=== PATIENT | female | born 1970 | race Caucasian/White ===

== ENCOUNTER 2016-03-22 07:47 | Emergency (ER) | payer BC, OTHER ==
[~2016-03-22] VITALS: Ht 167.6 cm; Wt 98.1 kg
[~2016-03-22 07:47] MED LIST: ESCI1TAB10 PO; ESOM20CA PO; FEXO1TAB45 PO; HYDR-5688 PO; HYDR25TA5 PO; IBUP-103 PO; LEVO25TA5 PO; LPR25 PO; ONDA4TAB7 SL; POTA-327 PO; zquil PO
[2016-03-22 07:56] VITALS: TEMP 37.1; Ht 167.6 cm; Wt 98.1 kg
[2016-03-22] MEDS ORDERED: PANTOprazole SOD 40 MG TAB PO STA (08:02)
[2016-03-22 08:08] VITALS: O2SAT 97
[2016-03-22 08:13] LABS: BASO % 0.5 %; BASO ABS # 0.04 K/uL (0-0.2); COMPLETE YES; EOS % 1.4 %; HEMATOCRIT 39.1 % (37-47); IG% 0.5 %; LYMPH % 20.8 %; LYMPH ABS # 1.85 K/uL (1.2-3.4); MEAN CELL VOLUME 91.4 fL (80-100); MEAN CORPUSCULAR HEMOGLOBIN 32.5 pg (25-34); MEAN CORPUSCULAR HGB CONC 35.5 g/dl (32-36); MEAN PLATELET VOLUME 9.5 fL (7.4-10.4); MONO % 7.9 %; NEUT % 68.9 %; PLATELET COUNT 258 K/uL (130-400); RED BLOOD COUNT 4.28 M/uL (4.2-5.4); WHITE BLOOD COUNT 8.88 K/uL (4.8-10.8)
[2016-03-22] MEDS ORDERED: ONDANSETRON INJ 2 MG/ML 2 ML VIAL IV PRN (08:15)
--- NOTE | 2016-03-22 08:16 | EMERGENCY ROOM VISIT NOTE ---
History Report prepared by Ronn: Abril Romo Under the Supervision of: Dr. Tello Mark M.D. First contact with patient: 07:58 Chief Complaint: CARDIAC ASSESSMENT Stated Complaint: CHEST PAIN Nursing Triage Summary: Pt presents to room A11b via ALS with complaints of nausea, shortness of breath and left sided chest pain. pt reports left sided chest pain started this am at approx 0430 along with shortness of breath. Pt reports she went to work and shortness of breath increased. pt reports chest pain has decreased and now she is nauseated. pt is a current smoker. 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 The patient states that her pain in her chest radiates into both shoulder and into her arms. The patient states the pain was initially a 12/10 in severity but it is currently only a 2/10. The nursing staff state that the patient went into work today and then was experiencing worsening SOB which caused her to be evaluated at the ED. The patient states that she is now experiencing nausea. She denies any abdominal pain or burning with urination. The patient states that she has baseline kidney pain that she has been seen by her PCP for the pain that she has experienced for the last 3 years. The patient states that it currently feels like indigestion. She states that she was recently suffering from a sinus infection and finished her Levaquin prescription yesterday. She states that also forgot to take her Prilosec the last 2 days. The patient states that a few days ago she also forgot to take her antidepressant medication but has since been taking it normally but states since she missed the dose she has "not felt right." The patient states that she has hypertension but denies any history of diabetes or heart problems. 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 Review of Systems All systems have been listed, reviewed, and are negative other than those previously mentioned. Please see Additional Medical History Sheet. Past Medical & Surgical Medical Problems: (1) Anxiety State Nos (2) Depressive Disorder Nec (3) Esophageal Reflux (4) Hypertension Nos (5) Hypothyroidism Nos (6) Tobacco Use Disorder Family History Hypertension Social History Smoking Status: Current Every Day Smoker Alcohol Use: none Marital Status: Occupation Status: employed Current/Historical Medications Scheduled Levothyroxine Sodium (Levothyroxine Sodium), 25 MCG PO QAM Metoprolol Tartrate (Lopressor), 25 MG PO QAM Omeprazole (Prilosec), 40 MG PO QAM Simvastatin (Zocor), 20 MG PO QPM Venlafaxine Hcl (Effexor), 200 MG PO QAM Zolpidem Tartrate (Ambien), 5 MG PO HS Scheduled PRN Fexofenadine Hcl (Dianelys), 60 MG PO DAILY PRN Ibuprofen Tab (Advil), 400-600 MG PO Q4 PRN Allergies Coded Allergies: Acetaminophen (Verified Allergy, Unknown, ANAPHYLAXIS, 03/22/16) Amoxicillin (Unverified Allergy, Unknown, YEAST INFECTIONS , 03/22/16) Clavulanic Acid (Unverified Allergy, Unknown, YEAST INFECTIONS , 03/22/16) Oxycodone (Verified Allergy, Unknown, ANAPHYLAXIS, 03/22/16) Physical Exam Vital Signs Date Time Temp Pulse Resp B/P Pulse Ox O2 Delivery O2 Flow Rate FiO2 03/22/16 10:24 97 18 133/91 96 03/22/16 09:39 88 18 138/93 95 Room Air 03/22/16 08:13 89 18 133/91 96 Room Air 03/22/16 08:08 97 Room Air 03/22/16 07:56 37.1 91 20 146/100 97 Room Air 03/22/16 07:55 94 Physical Exam GENERAL: Patient awake, alert, oriented x 3. Patient follows commands. Patient does not appear toxic. Patient is adequately hydrated and well- nourished. Patient appears to be in minimal distress. SKIN: No erythema, pallor, cyanosis or rash HEENT: Normal head, pupils equal, reactive to light and accommodation. Neck: Without adenopathy, no neck vein distention. LUNGS: Clear to auscultation. No wheezes, no rales, no rhonchi. HEART: No murmurs. No gallops. No rubs ABDOMEN: No masses, no rebound, no hepatomegaly or splenomegaly. Obese. EXTREMITIES: No signs of trauma. No pedal or pretibial edema. No calf or thigh tenderness. NEUROLOGIC: Cranial nerves II-XII within normal limits. No gross motor sensory function deficits. Medical Decision & Procedures ER Provider Diagnostic Interpretation: X ray results are stated below per my interpretation and the radiologist's interpretation. TWO VIEW CHEST CLINICAL HISTORY: Atypical chest pain. FINDINGS: PA and lateral chest radiographs are compared to study dated 06/17/2013 and correlated with chest CT dated 06/06/2012. The cardiomediastinal silhouette is unremarkable. The lungs and pleural spaces are clear. There is no pneumothorax. The bony thorax appears intact. Cholecystitis clips are noted in the right upper quadrant. IMPRESSION: No active disease in the chest. Electronically signed by: Rory Norwood M.D. 03/22/2016 8:33 AM Dictated Date/Time: 03/22/2016 8:32 AM Laboratory Results 03/22/16 08:00 Red Blood Count 4.28, Mean Corpuscular Volume 91.4, Mean Corpuscular Hemoglobin 32.5, Mean Corpuscular Hemoglobin Concent 35.5, Mean Platelet Volume 9.5, Neutrophils (%) (Auto) 68.9, Lymphocytes (%) (Auto) 20.8, Monocytes (%) (Auto) 7.9, Eosinophils (%) (Auto) 1.4, Basophils (%) (Auto) 0.5, Neutrophils # (Auto) 6.13, Lymphocytes # (Auto) 1.85, Monocytes # (Auto) 0.70, Eosinophils # (Auto) 0.12, Basophils # (Auto) 0.04 03/22/16 08:00 Test 03/22/16 08:00 White Blood Count 8.88 K/uL (4.8-10.8) Red Blood Count 4.28 M/uL (4.2-5.4) Hemoglobin 13.9 g/dL (12.0-16.0) Hematocrit 39.1 % (37-47) Mean Corpuscular Volume 91.4 fL (80-100) Mean Corpuscular Hemoglobin 32.5 pg (25-34) Mean Corpuscular Hemoglobin Concent 35.5 g/dl (32-36) Platelet Count 258 K/uL (130-400) Mean Platelet Volume 9.5 fL (7.4-10.4) Neutrophils (%) (Auto) 68.9 % Lymphocytes (%) (Auto) 20.8 % Monocytes (%) (Auto) 7.9 % Eosinophils (%) (Auto) 1.4 % Basophils (%) (Auto) 0.5 % Neutrophils # (Auto) 6.13 K/uL (1.4-6.5) Lymphocytes # (Auto) 1.85 K/uL (1.2-3.4) Monocytes # (Auto) 0.70 K/uL (0.11-0.59) Eosinophils # (Auto) 0.12 K/uL (0-0.5) Basophils # (Auto) 0.04 K/uL (0-0.2) RDW Standard Deviation 41.1 fL (36.4-46.3) RDW Coefficient of Variation 12.3 % (11.5-14.5) Immature Granulocyte % (Auto) 0.5 % Immature Granulocyte # (Auto) 0.04 K/uL (0.00-0.02) Anion Gap 7.0 mmol/L (3-11) Est Creatinine Clear Calc Drug Dose 111.8 ml/min Estimated GFR () 111.6 Estimated GFR (Non- 96.3 BUN/Creatinine Ratio 18.5 (10-20) Calcium Level 8.3 mg/dl (8.5-10.1) Troponin I < 0.015 ng/ml (0-0.045) Laboratory results as stated above per my review. Medications Administered Medications (Trade) Dose Ordered Sig/Williams Route Start Time Stop Time Status Last Admin Dose Admin Ondansetron HCl (Zofran Inj) 4 mg Q1HWA PRN IV 03/22/16 08:15 03/22/16 10:39 DC 03/22/16 08:12 4 MG Pantoprazole Sodium (Protonix Tab) 40 mg NOW STAT PO 03/22/16 08:02 03/22/16 08:06 DC 03/22/16 08:12 40 MG Acetaminophen (Tylenol Tab) 1,000 mg NOW STAT PO 03/22/16 09:57 03/22/16 09:59 DC 03/22/16 10:14 1,000 MG ECG Indication: chest pain Rate (beats per minute): 91 Rhythm: normal sinus Findings: no acute ischemic change, no ectopy ED Course 0757: Past medical records reviewed. The patient was evaluated in room A11B. A complete history and physical examination was performed. 0802: Ordered Protonix Tab 40 mg PO. 0815: Ordered Zofran Inj 4 mg IV. 0955: Upon reevaluation, the patient appeared to have resolution of her chest pain. she does state that she now has a slight headache. I discussed today's findings with her. She verbalized agreement of the treatment plan. The patient was discharged home. 0957: Ordered Tylenol Tab 1,000 mg PO. Medical Decision Nurses notes reviewed. Medical history sheet reviewed. Differential diagnosis includes but is not limited to: Etiologies such as cardiac ischemia, aortic dissection, pulmonary embolism, pneumonia, pneumothorax, musculoskeletal, infections, pericarditis, myocarditis , esophageal rupture, gastrointestinal, as well as others were entertained. The patient ran out of her omeprazole and has not had it for a few days. Her chest pain is most consistent with GERD. 2 sets of troponin are negative. Her EKG shows no acute findings. Imaging of the blood work were also evaluated. Please see above. The patient also complained of a headache and was given Tylenol. I believe the patient can safely return home. She will be placed off work today. Impression Primary Impression: GERD (gastroesophageal reflux disease) Additional Impression: Tension headache Scribe Attestation The scribe's documentation has been prepared under my direction and personally reviewed by me in its entirety. I confirm that the note above accurately reflects all work, treatment, procedures, and medical decision making performed by me. Departure Information Dispostion Home / Self-Care Referrals Angie Loza PA-C (PCP) Forms IMPORTANT VISIT INFORMATION Patient Instructions My [facility] Additional Instructions 650 mg of Tylenol every 4 hours as needed for headache. Make sure you take all of your medications including omeprazole. Follow-up with your family physician within the next 10 days. Return here sooner if your pain is getting worse. Problem Qualifiers
[2016-03-22] MEDS ORDERED: VENL100T2 PO (08:23)
[2016-03-22] MEDS ORDERED: ZOLP5TAB PO (08:23)
[2016-03-22] MEDS ORDERED: OMEP40CA PO (08:23)
[2016-03-22] MEDS ORDERED: SIMV20TA2 PO (08:23)
--- NOTE | 2016-03-22 08:34 | DIAGNOSTIC IMAGING REPORT ---
TWO VIEW CHEST CLINICAL HISTORY: Atypical chest pain. FINDINGS: PA and lateral chest radiographs are compared to study dated 06/17/2013 and correlated with chest CT dated 06/06/2012. The cardiomediastinal silhouette is unremarkable. The lungs and pleural spaces are clear. There is no pneumothorax. The bony thorax appears intact. Cholecystitis clips are noted in the right upper quadrant. IMPRESSION: No active disease in the chest. Electronically signed by: Rory Norwood M.D. 03/22/2016 8:33 AM Dictated Date/Time: 03/22/2016 8:32 AM
[2016-03-22 08:45] LABS: BLOOD UREA NITROGEN 14 mg/dl (7-18); BUN/CREATININE RATIO 18.5 (10-20); CALCIUM 8.3 mg/dl (8.5-10.1); CARBON DIOXIDE 25 mmol/L (21-32); CHLORIDE 108 mmol/L (98-107); CREATININE 0.75 mg/dl (0.60-1.20); GLUCOSE 97 mg/dl (70-99); POTASSIUM 3.9 mmol/L (3.5-5.1); SODIUM 140 mmol/L (136-145)
[2016-03-22] MEDS ORDERED: ACETAMINOPHEN 500 MG TAB PO STA (09:57)
[2016-03-22 10:24] VITALS: BP 133/91; PULSE 97; O2SAT 96
== END 2016-03-22 10:25 | disposition home or self-care (01) ==
LOC: EDBD 07:47 → C.EDA 07:48
DX: K21.9 Gastro-esophageal reflux disease without esophagitis (principal); R51 Headache; F17.200 Nicotine dependence, unspecified, uncomplicated; E03.9 Hypothyroidism, unspecified; I10 Essential (primary) hypertension; Z82.49 Family history of ischemic heart disease and other diseases of the circulatory system

== ENCOUNTER 2016-06-30 10:26 | Emergency (ER) | payer OTHER ==
[~2016-06-30] VITALS: Ht 167.6 cm; Wt 103.1 kg
[~2016-06-30 10:26] MED LIST changes: -ESCI1TAB10 PO; -ESOM20CA PO; -HYDR-5688 PO; -HYDR25TA5 PO; +OMEP40CA PO; -ONDA4TAB7 SL; -POTA-327 PO; +SIMV20TA2 PO; +VENL100T2 PO; +ZOLP5TAB PO; -zquil PO
[2016-06-30 10:41] VITALS: Ht 167.6 cm; Wt 103.1 kg
[2016-06-30] MEDS ORDERED: NXM/40 PO (11:06)
[2016-06-30] MEDS ORDERED: EFFSR75 PO (11:08)
[2016-06-30] MEDS ORDERED: ZOLP10TA PO (11:09)
[2016-06-30] MEDS ORDERED: LORA-741 PO (11:10)
[2016-06-30] MEDS ORDERED: ONDANSETRON INJ 2 MG/ML 2 ML VIAL IV STA (11:33)
[2016-06-30] MEDS ORDERED: SODIUM CHLORIDE 0.9% 1000ML 1,000 ML IV STA (11:33)
[2016-06-30 11:59] LABS: URINE APPEARANCE CLEAR (CLEAR); URINE BILIRUBIN NEG (NEG); URINE COLOR YELLOW; URINE NITRITE NEG (NEG); URINE SPECIFIC GRAVITY 1.012 (1.000-1.030); UROBILINOGEN NEG (NEG); ZZUR CULT IF INDIC CLEAN CATCH NO
[2016-06-30 12:00] LABS: PREG INTERNAL NEGATIVE QC NEG CLEAR BACKGROUND; PREG INTERNAL POSITIVE QC POS CONTROL LINE
[2016-06-30 12:00] LABS: BASO % 0.7 %; BASO ABS # 0.05 K/uL (0-0.2); COMPLETE YES; EOS % 3.9 %; HEMATOCRIT 42.3 % (37-47); IG% 0.5 %; LYMPH ABS # 2.18 K/uL (1.2-3.4); MEAN CELL VOLUME 94.8 fL (80-100); MEAN CORPUSCULAR HGB CONC 34.8 g/dl (32-36); MEAN PLATELET VOLUME 9.9 fL (7.4-10.4); MONO % 9.3 %; NEUT % 56.6 %; PLATELET COUNT 270 K/uL (130-400); RED BLOOD COUNT 4.46 M/uL (4.2-5.4); WHITE BLOOD COUNT 7.51 K/uL (4.8-10.8)
[2016-06-30 12:01] LABS: MANUAL MICROSCOPIC REQUIRED? NO; REVIEW REQ? NO
[2016-06-30 12:44] LABS: ALB/GLOB RATIO 1.1 (0.9-2); BUN/CREATININE RATIO 13.9 (10-20); CREATININE 0.67 mg/dl (0.60-1.20); POTASSIUM 4.3 mmol/L (3.5-5.1)
--- NOTE | 2016-06-30 12:44 | DIAGNOSTIC IMAGING REPORT ---
LUMBAR SPINE 5 VIEWS CLINICAL HISTORY: Low back pain. Nausea and constipation. FINDINGS: 5 views of the lumbar spine are obtained. No prior studies are available for comparison at the time of dictation. The skeletal structures are osteopenic. There is no radiographic evidence of fracture or malalignment. Vertebral body height and alignment are maintained. The transverse and spinous processes are intact. There is no evidence of spondylolysis. There is moderate degenerative disc space narrowing seen at L1-L2 and L4-L5 with associated endplate sclerosis. The remaining intervertebral disc spaces appear well-maintained. Small anterior osteophytes are seen throughout. Mild facet arthropathy is noted in the lower lumbar region. The visualized bony pelvis appears intact. A left hip arthroplasty is partially imaged. There is a nonobstructed abdominal bowel gas pattern. There is moderate to severe constipation. Cholecystectomy clips are seen in the right upper quadrant. Surgical clips and suture material are identified in the pelvis. IMPRESSION: 1. No acute bony abnormality is identified involving the lumbosacral spine. 2. Osteopenia and mild spondylotic change as above. 3. Moderate to severe constipation. Electronically signed by: Rory Norwood M.D. 06/30/2016 12:42 PM Dictated Date/Time: 06/30/2016 12:40 PM
--- NOTE | 2016-06-30 12:45 | DIAGNOSTIC IMAGING REPORT ---
CHEST AND ABDOMEN 2 VIEWS HISTORY: low back pain, nausea, constipation COMPARISON: Chest 03/22/2016. FINDINGS: The lungs are clear. The cardiomediastinal silhouette is within normal limits. There is no pneumoperitoneum or pneumatosis. The bowel gas pattern is unremarkable. Cholecystectomy. Left hip arthroplasty. Suture material and surgical clips within the pelvis. Moderate well-formed stool seen within the colon. No renal or ureteral stones identified. IMPRESSION: No acute cardiopulmonary process. No evidence for bowel obstruction. Electronically signed by: Nakul Lloyd M.D. 06/30/2016 12:43 PM Dictated Date/Time: 06/30/2016 12:41 PM
--- NOTE | 2016-06-30 13:05 | EMERGENCY ROOM VISIT NOTE ---
History First contact with patient: 11:07 Chief Complaint: NAUSEA Stated Complaint: NAUSEA,KIDNEY PAIN,CONSTIPATION Nursing Triage Summary: Pt reports starting Wednesday she has been having "kidney pain" on both sides of her back rated 8/10. Pt also reports nausea, and difficulty moving her bowels. Pt was seen at PCP yesterday, urine was negative and she had an xray to check for a blockage. History of Present Illness The patient is a 45 year old female who presents to the Emergency Room with complaints of nausea and "kidney pain." The patient states that she has had pain in her back for the past 2 days. The patient states that she has had difficulty with bowel movements, but still has been moving her bowels. She states that she has been nauseous, but has not had vomiting and states she has been eating okay. She states the pain is worse on the right side. She has had some bradycardic abdominal pain. She was seen by her primary care provider a few days ago and was told that she did not have a blockage. She denies any urinary symptoms, chest pain, shortness of breath or fevers. Review of Systems A complete 10-point Review of Systems was discussed with the patient, with pertinent positives and negatives listed in the History of Present Illness. All remaining Review of Systems questions can be considered negative unless otherwise specified. Past Medical/Surgical History Medical Problems: (1) Anxiety State Nos (2) Depressive Disorder Nec (3) Esophageal Reflux (4) Hypertension Nos (5) Hypothyroidism Nos (6) Tobacco Use Disorder Family History Hypertension Social History Smoking Status: Current Every Day Smoker Alcohol Use: none Marital Status: Occupation Status: employed Current/Historical Medications Scheduled Esomeprazole Magnesium (Nexium), 40 MG PO DAILY Levothyroxine Sodium (Levothyroxine Sodium), 25 MCG PO QAM Metoprolol Tartrate (Lopressor), 25 MG PO QAM Simvastatin (Zocor), 20 MG PO QPM Venlafaxine Hcl (Effexor Extended Rel), 75 MG PO TID Zolpidem Tartrate (Ambien), 10 MG PO HS Scheduled PRN Fexofenadine Hcl (Dianelys), 60 MG PO DAILY PRN Ibuprofen Tab (Advil), 400-600 MG PO Q4 PRN Lorazepam (Ativan), 0.5 MG PO HS PRN for Anxiety Allergies Coded Allergies: Acetaminophen (Verified Allergy, Unknown, ANAPHYLAXIS, 1/15/17) Amoxicillin (Unverified Allergy, Unknown, YEAST INFECTIONS , 03/22/16) Clavulanic Acid (Unverified Allergy, Unknown, YEAST INFECTIONS , 03/22/16) Oxycodone (Verified Allergy, Unknown, ANAPHYLAXIS, 03/22/16) Physical Exam Vital Signs Date Time Temp Pulse Resp B/P Pulse Ox O2 Delivery O2 Flow Rate FiO2 06/30/16 13:29 37.0 69 18 172/95 97 06/30/16 10:41 37.0 82 20 157/101 97 Room Air Physical Exam VITALS: Vitals are noted on the nurse's note and reviewed by myself. Vital signs stable. GENERAL: This is a 45-year-old female, in no acute distress, nondiaphoretic, well-developed well-nourished. HEENT: Normocephalic. PERRLA. EOMI. Nares patent. Mucous membranes moist. Neck is supple without nuchal rigidity. HEART: Regular rate and rhythm without murmurs gallops or rubs. LUNGS: Clear to auscultation bilaterally without wheezes, rales or rhonchi. ABDOMEN: Positive bowel sounds x 4. Soft, nontender to palpation. MUSCULOSKELETAL: There is vague tenderness over the lumbar region. No tenderness over the spinous processes. NEURO: Patient was alert and oriented to person place and time. Medical Decision & Procedures ER Provider Diagnostic Interpretation: CHEST AND ABDOMEN 2 VIEWS FINDINGS: The lungs are clear. The cardiomediastinal silhouette is within normal limits. There is no pneumoperitoneum or pneumatosis. The bowel gas pattern is unremarkable. Cholecystectomy. Left hip arthroplasty. Suture material and surgical clips within the pelvis. Moderate well-formed stool seen within the colon. No renal or ureteral stones identified. IMPRESSION: No acute cardiopulmonary process. No evidence for bowel obstruction. LUMBAR SPINE 5 VIEWS FINDINGS: 5 views of the lumbar spine are obtained. No prior studies are available for comparison at the time of dictation. The skeletal structures are osteopenic. There is no radiographic evidence of fracture or malalignment. Vertebral body height and alignment are maintained. The transverse and spinous processes are intact. There is no evidence of spondylolysis. There is moderate degenerative disc space narrowing seen at L1-L2 and L4-L5 with associated endplate sclerosis. The remaining intervertebral disc spaces appear well-maintained. Small anterior osteophytes are seen throughout. Mild facet arthropathy is noted in the lower lumbar region. The visualized bony pelvis appears intact. A left hip arthroplasty is partially imaged. There is a nonobstructed abdominal bowel gas pattern. There is moderate to severe constipation. Cholecystectomy clips are seen in the right upper quadrant. Surgical clips and suture material are identified in the pelvis. IMPRESSION: 1. No acute bony abnormality is identified involving the lumbosacral spine. 2. Osteopenia and mild spondylotic change as above. 3. Moderate to severe constipation. Laboratory Results 06/30/16 11:49 Red Blood Count 4.46, Mean Corpuscular Volume 94.8, Mean Corpuscular Hemoglobin 33.0, Mean Corpuscular Hemoglobin Concent 34.8, Mean Platelet Volume 9.9, Neutrophils (%) (Auto) 56.6, Lymphocytes (%) (Auto) 29.0, Monocytes (%) (Auto) 9.3, Eosinophils (%) (Auto) 3.9, Basophils (%) (Auto) 0.7, Neutrophils # (Auto) 4.25, Lymphocytes # (Auto) 2.18, Monocytes # (Auto) 0.70, Eosinophils # (Auto) 0.29, Basophils # (Auto) 0.05 06/30/16 11:49 Test 06/30/16 10:55 06/30/16 11:49 Urine Color YELLOW Urine Appearance CLEAR (CLEAR) Urine pH 8.0 (4.5-7.5) Urine Specific [place] 1.012 (1.000-1.030) Urine Protein NEG (NEG) Urine Glucose (UA) NEG (NEG) Urine Ketones NEG (NEG) Urine Occult Blood NEG (NEG) Urine Nitrite NEG (NEG) Urine Bilirubin NEG (NEG) Urine Urobilinogen NEG (NEG) Urine Leukocyte Esterase NEG (NEG) Urine Test NEG (NEG) White Blood Count 7.51 K/uL (4.8-10.8) Red Blood Count 4.46 M/uL (4.2-5.4) Hemoglobin 14.7 g/dL (12.0-16.0) Hematocrit 42.3 % (37-47) Mean Corpuscular Volume 94.8 fL (80-100) Mean Corpuscular Hemoglobin 33.0 pg (25-34) Mean Corpuscular Hemoglobin Concent 34.8 g/dl (32-36) Platelet Count 270 K/uL (130-400) Mean Platelet Volume 9.9 fL (7.4-10.4) Neutrophils (%) (Auto) 56.6 % Lymphocytes (%) (Auto) 29.0 % Monocytes (%) (Auto) 9.3 % Eosinophils (%) (Auto) 3.9 % Basophils (%) (Auto) 0.7 % Neutrophils # (Auto) 4.25 K/uL (1.4-6.5) Lymphocytes # (Auto) 2.18 K/uL (1.2-3.4) Monocytes # (Auto) 0.70 K/uL (0.11-0.59) Eosinophils # (Auto) 0.29 K/uL (0-0.5) Basophils # (Auto) 0.05 K/uL (0-0.2) RDW Standard Deviation 41.3 fL (36.4-46.3) RDW Coefficient of Variation 12.0 % (11.5-14.5) Immature Granulocyte % (Auto) 0.5 % Immature Granulocyte # (Auto) 0.04 K/uL (0.00-0.02) Anion Gap 6.0 mmol/L (3-11) Est Creatinine Clear Calc Drug Dose 128.6 ml/min Estimated GFR () 123.0 Estimated GFR (Non- 106.2 BUN/Creatinine Ratio 13.9 (10-20) Calcium Level 9.0 mg/dl (8.5-10.1) Total Bilirubin 0.4 mg/dl (0.2-1) Aspartate Amino Transf (AST/SGOT) 16 U/L (15-37) Alanine Aminotransferase (ALT/SGPT) 28 U/L (12-78) Alkaline Phosphatase 66 U/L (45-117) Total Protein 7.2 gm/dl (6.4-8.2) Albumin 3.8 gm/dl (3.4-5.0) Globulin 3.4 gm/dl (2.5-4.0) Albumin/Globulin Ratio 1.1 (0.9-2) Lipase 86 U/L (73-393) Chemistry Specimen Hemolysis Medications Administered Medications (Trade) Dose Ordered Sig/Williams Route Start Time Stop Time Status Last Admin Dose Admin Sodium Chloride (Nss 1000ml) 1,000 ml @ 999 mls/hr Q1H1M STAT IV 06/30/16 11:33 06/30/16 12:33 DC 06/30/16 11:33 999 MLS/HR Ondansetron HCl (Zofran Inj) 4 mg NOW STAT IV 06/30/16 11:33 06/30/16 11:38 DC 06/30/16 11:33 4 MG ED Course The patient was evaluated as above. Labs were drawn and IV access was obtained. Patient was medicated with 1 L normal saline solution and 4 mg Zofran. Imaging studies were performed and read by radiology as above. Patient was reevaluated and was sleeping. Findings were discussed. Discharge instructions were reviewed with the patient. The patient verbalized understanding of my assessment and treatment plan and was discharged home in good condition. Medical Decision Differential diagnosis includes low back pain, bowel obstruction, constipation, kidney stone, among others. The patient is a 45-year-old female who presents today complaining of multiple complaints. Labs revealed no leukocytosis, anemia or concerning electrolyte abnormalities. Urinalysis was not suggestive of infection. X-rays were obtained of the abdomen and lumbar spine. These did show moderate constipation but no evidence of obstruction. The patient was instructed to use MiraLAX at home. Based on the patient's presentation and work up, I feel the patient is stable for outpatient treatment. The patient was educated to the emergency department for any worsening of their current condition or new/concerning symptoms. She will follow up with her primary care provider. Impression Primary Impression: Constipation Departure Information Dispostion Home / Self-Care Condition GOOD Referrals Cierra Quintanilla M.D. (PCP) Patient Instructions My [facility] Additional Instructions Take Miralax over the counter as directed on the package for relief of your constipation. Drink plenty of fluids. Follow up with your primary care provider within 48 hours. Return to the emergency department for worsening pain, vomiting, fevers, or any other new/concerning symptoms. Problem Qualifiers Primary Impression: Constipation Constipation type: unspecified constipation type Qualified Codes: K59.00 - Constipation, unspecified
[2016-06-30 13:29] VITALS: BP 172/95; PULSE 69; TEMP 37; O2SAT 97
== END 2016-06-30 13:30 | disposition home or self-care (01) ==
LOC: C.EDB 10:28 → C.EDC 13:30
DX: K59.00 Constipation, unspecified (principal); R11.0 Nausea; M54.9 Dorsalgia, unspecified; I10 Essential (primary) hypertension; E03.9 Hypothyroidism, unspecified; F17.210 Nicotine dependence, cigarettes, uncomplicated

== ENCOUNTER 2021-09-12 12:50 | Inpatient (IN) ==
[2021-09-12] MEDS ORDERED: SODIUM CHLORIDE 0.9% 1000ML 1,000 ML IV ONE (13:35)
[2021-09-12] MEDS ORDERED: ONDANSETRON INJ 2 MG/ML 2 ML VIAL IV STA (13:35)
[2021-09-12] MEDS ORDERED: MoRPHine SULFATE 10 MG/ML CARP/VIAL IV STA ×2 (13:35→16:11)
--- NOTE | 2021-09-12 13:35 | Emergency Department Note ---
Impression & Plan Recurrent vulvar cancer, Nausea, Abdominal pain ED Provider Note NAME: TYLER GOEL AGE: 50 SEX: F : 1970 ARRIVES VIA: Walk-In INFORMANT: Patient ED PROVIDER(S): Shivam Mancuso DO CHIEF COMPLAINT: shaking HPI: Patient is a 50-year-old female with recurrent vulvar cancer that presents to the ER for bleeding associated with shaking chills. First round of chemo was this past Wednesday. Past 24 hours she has been having shaking chills that she has been unable to control. She feels very cold. She has been having some intermittent bleeding from right vulva. She went to receive radiation today and they sent her over here to be evaluated. She started radiation on the fifth. Denies any headache or change in vision. No cough or runny nose. No belly pain, nausea, or vomiting. She admits to pain in her groin with some mild redness and drainage. Has persistent dysuria since the cancer was diagnosed. She notes that is very painful. ROS: See above HPI for pertinent positives & negatives. A total of 10 systems reviewed and were otherwise negative. PAST MEDICAL HISTORY:See Below PAST SURGICAL HISTORY:See Below FAMILY HISTORY:See Below SOCIAL HISTORY:See Below HOME MEDICATIONS:See Below ALLERGIES:See Below VITALS:See Below PHYSICAL EXAMINATION: GENERAL: Sitting up in bed, alert, appearing, shaking chills the upper extremities EYE EXAM: normal conjunctiva. OROPHARYNX: mucous membranes are moist LUNGS: Clear to auscultation. Normal chest wall mechanics HEART: no murmurs, S1 normal and S2 normal ABDOMEN: abdomen soft, non-tender, normo-active bowel sounds, no masses, no rebound or guarding. : Right vulva is engorged erythematous significantly tender with an ulcerating lesion mild erythema tracking up to the pubic symphysis. Performed with female RN at bedside. UPPER EXTREMITIES: upper extremities are grossly normal. LOWER EXTREMITIES: No pitting edema. NEURO EXAM: Normal sensorium, cranial nerves II-XII grossly intact, normal speech, no gross weakness of arms, no gross weakness of legs. MEDICAL DECISION MAKING: Patient is a 50-year-old female who presents to the ER for severe lower pelvic pain associated with dysuria area and shaking chills. He was established blood work was obtained. Labs show no significant leukocytosis or anemia. INR was unremarkable. BMP with LFTs bilirubin was unremarkable. Troponin was negative. Pro-Juan was normal. COVID was negative. Patient was given multiple doses of morphine as well as 2 g Rocephin due to the shaking chills/rigors that she was h aving upon presentation as broad-spectrum coverage. Patient was discussed with hospitalist for further evaluation. Pressures were 190s did improve with pain meds. Triage Nursing notes reviewed. Limited review of prior medical records performed Vital Signs: reviewed and remarkable for HTN Differential diagnosis: Differential diagnosis includes etiologies such as sepsis, UTI, pneumonia, metabolic, electrolyte abnormalities, cardiac sources, intracerebral event, toxicologic, neurological, as well as others were entertained. ER treatment provided: See below Diagnostics interpreted by me: ECG: Sinus rhythm rate 82 Normal axis No PVCs QTC 436 Cardiac Monitoring: An order was placed for continuous cardiac monitoring. The monitor shows a rate of 90 with sinus rhythm. Laboratory studies: As stated above and show below. Imaging studies: CT abdomen pelvis was unremarkable with the exception of the right vulvar mass and large lymph nodes [facility]: none Critical Care: None Past Med/Surg History Medical History (Updated 09/12/21 @ 16:45 by Shivam Mancuso DO) Chest pain Elevated lipids Gastroenteritis High cholesterol Hypertension (06/17/13) Hypothyroidism Tennis elbow Vulvar cancer Surgical History (Updated 08/20/21 @ 08:34 by Tonya Rouse RN) H/O vulvectomy History of hip replacement left History of partial hysterectomy Hx of cholecystectomy Family History (Updated 08/20/21 @ 08:37 by Tonya Rouse RN) Grandfather (Maternal) Cancer skin cancer Mother Hypertension Dyslipidemia Thyroid disease Father Dyslipidemia Social History (Updated 08/20/21 @ 08:40 by Tonya Rouse RN) Smoking Status: Current every day smoker Tobacco Type: Cigarettes Age Started Using Tobacco: 16; packs per day: 0.5; Cigarettes Per Day: 10; Hx Alcohol Use: No Hx Substance Use: No Preferred Language: Estonian Communication Ability: Effective Hearing Ability: Normal Paving Bed Maker Required: No Beliefs That Will Affect Care: None marital status: Current Living Situation: Alone current occupational status: employed 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 Safe at Home: Yes caffeine: Yes Assistive Devices: CPAP Allergies Allergies Allergy/AdvReac Type Severity Reaction Status Date / Time amoxicillin Allergy Unknown YEAST Verified 08/20/21 08:27 INFECTIONS clavulanic acid Allergy Unknown YEAST Verified 08/20/21 08:27 INFECTIONS oxycodone Allergy Unknown ANAPHYLAXIS Verified 08/20/21 08:27 Home Meds Home Medications Medication Instructions Recorded Confirmed FEXOFENADINE HCL (KELSY) 60 mg PO DAILY PRN #0 tab 06/06/12 08/20/21 METOPROLOL TARTRATE (LOPRESSOR) 25 mg PO QAM #0 tab 06/06/12 08/20/21 LEVOTHYROXINE SODIUM 25 mcg PO QAM #0 06/17/13 08/20/21 Simvastatin (Zocor) 20 mg PO QPM #0 tab 03/22/16 08/20/21 LORAZEPAM (ATIVAN) 0.5 mg PO HS PRN #0 tab 06/30/16 08/20/21 VENLAFAXINE HCL (EFFEXOR EXTENDED 75 mg PO TID #0 cap 06/30/16 08/20/21 REL) ZOLPIDEM TARTRATE (AMBIEN) 10 mg PO HS #0 tab 06/30/16 08/20/21 acetaminophen 500 mg tablet 1,000 mg PO TID PRN tab 08/20/21 08/20/21 (Tylenol Extra Strength) amitriptyline 25 mg tablet 25 mg PO DAILY 08/20/21 08/20/21 omeprazole 40 mg capsule,delayed 40 mg PO DAILY 08/20/21 08/20/21 release oxycodone-acetaminophen 5 mg-325 1 tab PO Q8H PRN 09/09/21 09/09/21 mg tablet (Percocet) sulfamethoxazole 800 1 tab PO BID 09/09/21 09/09/21 mg-trimethoprim 160 mg tablet (Bactrim DS) Previous Rx's Medication Instructions Recorded lidocaine 5 % topical ointment 1 applic TOPICAL QID PRN #60 g 08/28/21 Results & Data (ED) Vital Signs Vital Signs - 24 hr 09/12/21 12:51 09/12/21 13:54 09/12/21 15:00 Temperature 36.5 C Temperature Source Oral Pulse Rate 90 88 Pulse Rate [Apical] 87 78 Pulse Rhythm Regular Respiratory Rate 18 20 18 Respiratory Effort / Characteristics Non-Labored Respiratory Depth Normal Blood Pressure 143/93 H Blood Pressure [Right Arm] 180/103 H 172/101 H Blood Pressure Mean 109 Blood Pressure Mean [Right Arm] 128 124 Pulse Oximetry 96 94 96 Oxygen Delivery Method Room Air Room Air Room Air Sepsis Recent Fever Within 48 Hours No Sepsis New/Unexplained Change in Mental Status No Sepsis Action Taken by Nursing No Action Required 09/12/21 15:46 Temperature Temperature Source Pulse Rate Pulse Rate [Apical] 87 Pulse Rhythm Respiratory Rate 18 Respiratory Effort / Characteristics Respiratory Depth Blood Pressure Blood Pressure [Right Arm] 196/113 H Blood Pressure Mean Blood Pressure Mean [Right Arm] 140 Pulse Oximetry 97 Oxygen Delivery Method Room Air Sepsis Recent Fever Within 48 Hours Sepsis New/Unexplained Change in Mental Status Sepsis Action Taken by Nursing Laboratory Data Result diagrams: 09/12/21 13:40 09/12/21 13:40 Lab Results 09/12/21 09/12/21 09/12/21 Range/Units 13:40 13:40 13:40 WBC 8.10 (4.8-10.8) K/ul RBC 3.99 (3.93-5.22) M/uL Hgb 12.7 (12.0-16.0) g/dl Hct 38.0 (34.1-44.9) % MCV 95.2 (80.0-100.0) fL MCH 31.8 (25.0-34.0) pg MCHC 33.4 (32.0-36.0) g/dL RDW Std Deviation 43.8 (36.4-46.3) fL RDW Coeff of Roger 12.6 (11.5-14.5) % Plt Count 279 (130-400) K/uL MPV 9.6 (9.4-12.3) fL Immature Gran % (Auto) 0.4 % Neut % (Auto) 66.7 % Lymph % (Auto) 23.0 % [place] % (Auto) 9.9 % Eos % (Auto) 0.0 % Baso % (Auto) 0.0 % Neut # (Auto) 5.41 (1.4-6.5) K/uL Lymph # (Auto) 1.86 (1.2-3.4) K/uL [place] # (Auto) 0.80 (0.24-0.82) K/uL Eos # (Auto) 0.00 (0-0.50) K/uL Baso # (Auto) 0.00 (0-0.2) K/uL Immature Gran # (Auto) 0.03 H (0.00-0.02) K/uL PT 10.3 (9.0-12.0) Seconds INR 1.0 (0.9-1.1) APTT 23.9 (21.0-31.0) Seconds PTT Ratio 0.9 Sodium 134 L (136-145) mmol/L Potassium 3.9 (3.5-5.1) mmol/L Chloride 101 (98-107) mmol/L Carbon Dioxide 26 (21-32) mmol/L Anion Gap 7 (3-11) BUN 22 (6-23) mg/dl Creatinine 0.99 (0.6-1.2) mg/dl Est Cr Clr Drug Dosing Not Reportable Est GFR ( Amer) 77.0 ml/min Est GFR (Non-Af Amer) 66.4 ml/min BUN/Creatinine Ratio 22.2 H (10-20) Glucose 101 H (70-99(Fasting)) mg/dl Lactate (0.4-2.0) mmol/L Calcium 9.2 (8.5-10.1) mg/dl Magnesium 1.7 (1.7-2.4) mg/dl Total Bilirubin 0.5 (0.2-1.0) mg/dl AST 29 (13-39) U/L ALT 247 H (7-52) U/L Alkaline Phosphatase 88 (34-104) U/L Troponin I High Sens 3.2 (0-14) pg/ml Total Protein 6.8 (6.0-8.3) gm/dl Albumin 4.2 (3.4-5.0) gm/dl Globulin 2.6 (2.5-4.0) gm/dl Albumin/Globulin Ratio 1.6 (0.9-2) Procalcitonin (0-0.5) ng/ml SARS-CoV-2, RNA, NAAT (NEGATIVE) 09/12/21 09/12/21 09/12/21 Range/Units 13:40 13:40 13:40 WBC (4.8-10.8) K/ul RBC (3.93-5.22) M/uL Hgb (12.0-16.0) g/dl Hct (34.1-44.9) % MCV (80.0-100.0) fL MCH (25.0-34.0) pg MCHC (32.0-36.0) g/dL RDW Std Deviation (36.4-46.3) fL RDW Coeff of Roger (11.5-14.5) % Plt Count (130-400) K/uL MPV (9.4-12.3) fL Immature Gran % (Auto) % Neut % (Auto) % Lymph % (Auto) % [place] % (Auto) % Eos % (Auto) % Baso % (Auto) % Neut # (Auto) (1.4-6.5) K/uL Lymph # (Auto) (1.2-3.4) K/uL [place] # (Auto) (0.24-0.82) K/uL Eos # (Auto) (0-0.50) K/uL Baso # (Auto) (0-0.2) K/uL Immature Gran # (Auto) (0.00-0.02) K/uL PT (9.0-12.0) Seconds INR (0.9-1.1) APTT (21.0-31.0) Seconds PTT Ratio Sodium (136-145) mmol/L Potassium (3.5-5.1) mmol/L Chloride (98-107) mmol/L Carbon Dioxide (21-32) mmol/L Anion Gap (3-11) BUN (6-23) mg/dl Creatinine (0.6-1.2) mg/dl Est Cr Clr Drug Dosing Est GFR ( Amer) ml/min Est GFR (Non-Af Amer) ml/min BUN/Creatinine Ratio (10-20) Glucose (70-99(Fasting)) mg/dl Lactate 0.7 (0.4-2.0) mmol/L Calcium (8.5-10.1) mg/dl Magnesium (1.7-2.4) mg/dl Total Bilirubin (0.2-1.0) mg/dl AST (13-39) U/L ALT (7-52) U/L Alkaline Phosphatase (34-104) U/L Troponin I High Sens (0-14) pg/ml Total Protein (6.0-8.3) gm/dl Albumin (3.4-5.0) gm/dl Globulin (2.5-4.0) gm/dl Albumin/Globulin Ratio (0.9-2) Procalcitonin < 0.05 (0-0.5) ng/ml SARS-CoV-2, RNA, NAAT NEGATIVE (NEGATIVE) Administered Medications Discontinued Medications Sodium Chloride (Nss 1000ml) 1,000 mls @ 999 mls/hr IV .Q1H1M ONE Stop: 09/12/21 14:35 Last Admin: 09/12/21 14:44 Dose: 999 mls/hr Documented by: [id number] Ioversol (Optiray 320 100ml) 94 ml IV ONCE ONE Stop: 09/12/21 15:09 Last Admin: 09/12/21 15:12 Dose: 94 ml Documented by: [id number] Morphine Sulfate (Morphine Sulfate 10 Mg/Ml Carp/Vial) 6 mg IV NOW STA Stop: 09/12/21 13:36 Last Admin: 09/12/21 14:44 Dose: Not Given Documented by: [id number] Morphine Sulfate (Morphine Sulfate 4 Mg/Ml 1 Ml Carp\Vial) Confirm Administered Dose 4 mg .ROUTE .STK-MED ONE Stop: 09/12/21 14:41 Last Admin: 09/12/21 14:44 Dose: 4 mg Documented by: [id number] Morphine Sulfate (Morphine Sulfate 2 Mg/Ml Carp) Confirm Administered Dose 2 mg .ROUTE .STK-MED ONE Stop: 09/12/21 14:41 Last Admin: 09/12/21 14:44 Dose: 2 mg Documented by: [id number] Ondansetron HCl (Ondansetron Inj 2 Mg/Ml 2 Ml Vial) 4 mg IV NOW STA Stop: 09/12/21 13:36 Last Admin: 09/12/21 14:44 Dose: 4 mg Documented by: [id number] Imaging Data Radiologist's Impression: Abdomen/Pelvis CT 09/12/21 13:17 CT SCAN OF THE ABDOMEN AND PELVIS WITH IV CONTRAST CLINICAL HISTORY: Vulvar cancer. Generalized abdominal pain. Chills. COMPARISON STUDY: Abdominal radiographs dated 06/30/2016. TECHNIQUE: Following the IV administration of 94 cc of Optiray 320, CT scan of the abdomen and pelvis is performed from the lung bases to the proximal femora. Images are reviewed in the axial, sagittal, and coronal planes. IV contrast was administered without complication. A dose lowering technique was utilized adhering to the principles of ALARA. CT DOSE: 1304.62 mGycm FINDINGS: Lung bases: The tip of a central venous infusion port terminates at the cavoatrial junction. The heart is normal in size and without pericardial effusion. The lung bases are clear. Liver: The contrast-enhanced liver is normal in size, contour, and attenuation. There is no intrahepatic biliary ductal dilatation. The hepatic veins and portal veins are patent. Gallbladder: Surgically absent noting clips in the gallbladder fossa. Spleen: Normal in size and attenuation. Pancreas: Unremarkable. Adrenal glands: Unremarkable. Kidneys: The contrast enhanced kidneys are normal in size and without hydronephrosis. The kidneys enhance symmetrically. Abdominal vasculature: The abdominal aorta is normal in course and caliber. Bowel: There is mild to moderate colonic fecal retention. No bowel obstruction is seen. The appendix is well-visualized and normal. Peritoneum: There is no intraperitoneal free air or abdominal ascites. There is a fat-containing umbilical hernia. Lymphadenopathy: There are mildly enlarged bilateral inguinal lymph nodes. The largest is seen on the left on image #388 and measures 2.2 x 1.7 cm. A right pe lvic sidewall lymph node on image 322 measures 2.6 x 2.1 cm. There is no abdominal, mesenteric, retroperitoneal adenopathy. Pelvic viscera: Evaluation of the pelvis is degraded by streak artifact from a left hip arthroplasty. The bladder is distended but otherwise normal in appearance. The uterus is surgically absent. No adnexal lesion is seen. There is infiltration throughout the vulvar soft tissues, right greater than left. Soft tissue nodularity in the region of the right perineum/labia is seen on image #468. No organized/drainable fluid collection is identified. Postoperative change is noted in the right groin. Skeletal structures: No lytic or blastic lesions are seen. There is mild lumbosacral spondylosis, greatest at L4-L5. A left hip arthroplasty is in place. 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 IMPRESSION: 1. There is infiltration of the vulvar soft tissues, right greater than left with associated soft tissues nodularity in the subcutaneous tissues of the right right perineum/labia. This likely corresponds to the reported history of a vulv ar neoplasm. Clinical correlation will be essential. 2. There are mildly enlarged bilateral inguinal lymph nodes, as well as an enlarged right pelvic sidewall lymph node. These are highly suspicious for metastatic brielle disease. 3. Additional findings as above. ACT 112: Negative or not required by law. Electronically signed by: Rory Norwood M.D. 09/12/2021 3:41 PM Chest X-Ray 09/12/21 13:17 XR chest 1V portable HISTORY: SEPSIS COMPARISON: Chest and abdominal series 06/30/2016. FINDINGS: There are low lung volumes. The lungs are clear. Cardiac silhouette is mildly enlarged. Right jugular Port-A-Cath terminates at the distal SVC. No pne umothorax. No pleural effusions. IMPRESSION: Mild cardiomegaly. Otherwise, no acute process within the chest. ACT 112: Negative or not required by law. Electronically signed by: Nakul Lloyd M.D. 09/12/2021 1:49 PM Discharge Plan Visit Data Chief Complaint: Illness Stated Complaint: CHILLS, CANCER, LABIA BLEEDING ED Provider: Shivam Mancuso Discharge Problem: Recurrent vulvar cancer, Nausea, Abdominal pain Forms Stand Alone Forms: [facility] [employer] Prescriptions Prescriptions: No Action acetaminophen [Tylenol Extra Strength] 500 mg tablet 1,000 mg PO TID PRNRF: 0 omeprazole 40 mg capsule,delayed release(DR/EC) 40 mg PO DAILY RF: 0 amitriptyline 25 mg tablet 25 mg PO DAILY RF: 0 sulfamethoxazole-trimethoprim [Bactrim DS] 800-160 mg tablet 1 tab PO BID RF: 0 oxycodone-acetaminophen [Percocet] 5-325 mg tablet 1 tab PO Q8H PRN (Reason: pain) RF: 0 FEXOFENADINE HCL (KELSY) 60 MG tablet 60 mg PO DAILY PRNQty: 0 RF: 0 METOPROLOL TARTRATE (LOPRESSOR) 25 MG tablet 25 mg PO QAM Qty: 0 RF: 0 LEVOTHYROXINE SODIUM 25 MCG tablet 25 mcg PO QAM Qty: 0 RF: 0 Simvastatin (Zocor) 20 MG tablet 20 mg PO QPM Qty: 0 RF: 0 VENLAFAXINE HCL (EFFEXOR EXTENDED REL) 75 MG CONTR REL CAP 75 mg PO TID Qty: 0 RF: 0 ZOLPIDEM TARTRATE (AMBIEN) 10 MG tablet 10 mg PO HS Qty: 0 RF: 0 LORAZEPAM (ATIVAN) 0.5 MG tablet 0.5 mg PO HS PRN (Reason: Anxiety) Qty: 0 RF: 0 lidocaine 5 % ointment 1 applic topical QID PRN (Reason: pain) Qty: 60 RF: 3 Referrals Referrals: Cierra Quintanilla MD [Primary Care Provider] - Discharge Problem: Abdominal pain Qualifiers: Abdominal location: unspecified location Qualified Code(s): R10.9 - Unspecified abdominal pain
--- NOTE | 2021-09-12 13:51 | XRay Report ---
XR chest 1V portable HISTORY: SEPSIS COMPARISON: Chest and abdominal series 06/30/2016. FINDINGS: There are low lung volumes. The lungs are clear. Cardiac silhouette is mildly enlarged. Rig ht jugular Port-A-Cath terminates at the distal SVC. No pneumothorax. No pleural effusions. IMPRESSION: Mild cardiomegaly. Otherwise, no acute process within the chest. ACT 112: Negative or not required by law. Electronically signed by: Nakul Lloyd M.D. 09/12/2021 1:49 PM
[2021-09-12 14:02] LABS: Hemoglobin 12.7 g/dl (12.0-16.0); Immature Granulocytes # (auto) 0.03 K/uL (0.00-0.02); Immature Granulocytes % (auto) 0.4 %; Lymphocytes # (auto) 1.86 K/uL (1.2-3.4); Mean Corpuscular Hemoglobin 31.8 pg (25.0-34.0); Mean Corpuscular Hgb Conc 33.4 g/dL (32.0-36.0); Mean Corpuscular Volume 95.2 fL (80.0-100.0); Mean Platelet Volume 9.6 fL (9.4-12.3); Monocytes % (auto) 9.9 %; Neutrophils # (auto) 5.41 K/uL (1.4-6.5); Neutrophils % (auto) 66.7 %; Platelet Count 279 K/uL (130-400); RDW Coefficient of Variation 12.6 % (11.5-14.5); RDW Standard Deviation 43.8 fL (36.4-46.3); Red Blood Count 3.99 M/uL (3.93-5.22)
[2021-09-12 14:22] LABS: Alanine Aminotransferase 247 U/L (7-52); Albumin Globulin Ratio 1.6 (0.9-2); Albumin Level 4.2 gm/dl (3.4-5.0); Alkaline Phosphatase 88 U/L (34-104); Anion Gap 7 (3-11); Aspartate Aminotransferase 29 U/L (13-39); BUN Creatinine Ratio 22.2 (10-20); Bilirubin,Total 0.5 mg/dl (0.2-1.0); Blood Urea Nitrogen 22 mg/dl (6-23); Calcium 9.2 mg/dl (8.5-10.1); Carbon Dioxide 26 mmol/L (21-32); Chloride 101 mmol/L (98-107); Est GFR (Non-African American) 66.4 ml/min; Globulin 2.6 gm/dl (2.5-4.0); Glucose 101 mg/dl (70-99(Fasting)); Magnesium 1.7 mg/dl (1.7-2.4); Potassium 3.9 mmol/L (3.5-5.1); Sodium 134 mmol/L (136-145); Total Protein 6.8 gm/dl (6.0-8.3)
[2021-09-12 14:27] LABS: Troponin I High Sensitivity 3.2 pg/ml (0-14)
[2021-09-12 14:33] LABS: Partial Thromboplastin Ratio 0.9; Partial Thromboplastin Time 23.9 Seconds (21.0-31.0); Prothrombin Time 10.3 Seconds (9.0-12.0)
[2021-09-12] MEDS ORDERED: MoRPHine SULFATE 2 MG/ML CARP ONE (14:40)
[2021-09-12] MEDS ORDERED: MoRPHine SULFATE 4 MG/ML 1 ML CARP\\VIAL ONE (14:40)
[2021-09-12] MEDS ORDERED: OPTIRAY 320 100ml IV ONE (15:08)
--- NOTE | 2021-09-12 15:42 | CT Scan Report ---
CT SCAN OF THE ABDOMEN AND PELVIS WITH IV CONTRAST CLINICAL HISTORY: Vulvar cancer. Generalized abdominal pain. Chills. COMPARISON STUDY: Abdominal radiographs dated 06/30/2016. TECHNIQUE: Following the IV administration of 94 cc of Optiray 320, CT scan of the abdomen and pelvi s is performed from the lung bases to the proximal femora. Images are reviewed in the axial, sagittal , and coronal planes. IV contrast was administered without complication. A dose lowering technique wa s utilized adhering to the principles of ALARA. CT DOSE: 1304.62 mGycm FINDINGS: Lung bases: The tip of a central venous infusion port terminates at the cavoatrial junction. The hear t is normal in size and without pericardial effusion. The lung bases are clear. Liver: The contrast-enhanced liver is normal in size, contour, and attenuation. There is no intrahepa tic biliary ductal dilatation. The hepatic veins and portal veins are patent. Gallbladder: Surgically absent noting clips in the gallbladder fossa. Spleen: Normal in size and attenuation. Pancreas: Unremarkable. Adrenal glands: Unremarkable. Kidneys: The contrast enhanced kidneys are normal in size and without hydronephrosis. The kidneys enh ance symmetrically. Abdominal vasculature: The abdominal aorta is normal in course and caliber. Bowel: There is mild to moderate colonic fecal retention. No bowel obstruction is seen. The appendix is well-visualized and normal. Peritoneum: There is no intraperitoneal free air or abdominal ascites. There is a fat-containing umbi lical hernia. Lymphadenopathy: There are mildly enlarged bilateral inguinal lymph nodes. The largest is seen on the left on image #388 and measures 2.2 x 1.7 cm. A right pelvic sidewall lymph node on image 322 measur es 2.6 x 2.1 cm. There is no abdominal, mesenteric, retroperitoneal adenopathy. Pelvic viscera: Evaluation of the pelvis is degraded by streak artifact from a left hip arthroplasty. The bladder is distended but otherwise normal in appearance. The uterus is surgically absent. No adn exal lesion is seen. There is infiltration throughout the vulvar soft tissues, right greater than lef t. Soft tissue nodularity in the region of the right perineum/labia is seen on image #468. No organi zed/drainable fluid collection is identified. Postoperative change is noted in the right groin. Skeletal structures: No lytic or blastic lesions are seen. There is mild lumbosacral spondylosis, gre atest at L4-L5. A left hip arthroplasty is in place. 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 IMPRESSION: 1. There is infiltration of the vulvar soft tissues, right greater than left with associated soft tis sues nodularity in the subcutaneous tissues of the right right perineum/labia. This likely correspond s to the reported history of a vulvar neoplasm. Clinical correlation will be essential. 2. There are mildly enlarged bilateral inguinal lymph nodes, as well as an enlarged right pelvic side wall lymph node. These are highly suspicious for metastatic brielle disease. 3. Additional findings as above. ACT 112: Negative or not required by law. Electronically signed by: Rory Norwood M.D. 09/12/2021 3:41 PM
[2021-09-12] MEDS ORDERED: cefTRIAXone SODIUM 2,000 MG/70 ML BAG IV STA (16:11)
[2021-09-12 16:42] LABS: Appearance Urine Clear (Clear); Bacteria Urine Automated Negative (Negative); Bilirubin Urine Negative (Negative); Blood Urine 1+ (Negative); Color Urine Yellow; Epithelial Cell Urine Auto >30 /lpf (0-5); Glucose Urine UA Negative (Negative); Ketones Urine Negative (Negative); Leukocyte Esterase Urine 2+ (Negative); Nitrite Urine Negative (Negative); Protein Urine Negative (Negative); Specific Gravity Urine 1.016 (1.000-1.030); Urobilinogen Urine Negative (Negative)
--- NOTE | 2021-09-12 17:16 | History & Physical Report ---
Date of Service September 12, 2021 Assessment & Plan (1) Illness: Plan: #. Illness #. Likely UTI #. Weak #. Vulvar SCC undergoing chemo and radiation Patient noted to have bleeding from her genitourinary region today at radiation office which was more heavy than her intermittent/slight bleeding. Patient also complains of having pain or burning with passing urine since July, patient currently on Bactrim since last 1 week, yet to finish her course. Patient was given Bactrim for broader spectrum coverage and foci of infection was not identified per patient. Patient received Rocephin while in ED, labs look fairly WNL, blood culture and urine culture, continue Rocephin, urine analysis negative for UTI. PT/OT, monitor hemoglobin, gynecology consult. Await admitting urine culture and blood culture. #. Genitourinary bleeding Patient came in with complaint of more heavy bleeding today than her usual light/intermittent bleeding Gynecology consult H&H monitor daily or as appropriate. Bleeding has stopped. Admitting hemoglobin 12.7 #. Other chronic medical conditions: Esophageal reflux, hypothyroidism Continue with/resume home meds as and when appropriate. #. DVT prophylaxis: SCDs re: bleeding, if no bleeding by deneen am, consider chemo Px. #. DNR/DNI History of Present Illness Chief Complaint: bleeding, weak, dizzy Primary Care Provider: Cierra Quintanilla MD 50-year-old lady with recent diagnosis of SCC x vulva undergoing 6-week treatment with chemo and radiation with Dr. Dandre Mccall, esophageal reflux, diaphragmatic hernia, allergic rhinitis, lichen sclerosis presented to our ED 09/12 from radiation clinic due to concerns of bleeding associated with shaking chills at the radiation office. Patient reports feeling chills/cold since last 1 day, patient is taking Bactrim for infection [not sure the site of infection] last 1 week, she reports having light intermittent bleeding from the genitourinary area but the bleeding today was heavy and dripping down both lower extremities. Hence she was sent over to ER for further evaluation. Bleeding seems to have self controlled at bedside exam. Patient does report feeling pain or burning while passing urine since July. Patient denies fever or headache or chest pain or palpitation or sore throat or cough or belly pain or changes in her bowel habit lately. Patient does report some dizziness and weakness. Patient has received COVID-vaccine x2. Patient endorses a smoking 2 to 3 packs/week, lately 2 packs/week, smoking since age 25. Patient endorses drinking alcohol very rarely. Patient denies any recreational drugs or marijuana use. Patient DNR/DNI. Patient reports skin cancer in grandparents and " some cancer" in her uncle. Patient denies blood clot history in self. Allergies Allergy/AdvReac Type Severity Reaction Status Date / Time amoxicillin Allergy Unknown YEAST Verified 08/20/21 08:27 INFECTIONS clavulanic acid Allergy Unknown YEAST Verified 08/20/21 08:27 INFECTIONS oxycodone Allergy Unknown ANAPHYLAXIS Verified 08/20/21 08:27 Home Medications Medication Instructions Recorded Confirmed Type acetaminophen 500 mg tablet 1,000 mg PO TID PRN tab 08/20/21 09/12/21 History (Tylenol Extra Strength) amitriptyline 25 mg tablet 50 mg PO DAILY 08/20/21 09/12/21 History omeprazole 40 mg capsule,delayed 40 mg PO DAILY 08/20/21 09/12/21 History release lidocaine 5 % topical ointment 1 applic TOPICAL QID PRN #60 g 08/28/21 09/12/21 Rx oxycodone-acetaminophen 5 mg-325 1 tab PO Q8H PRN 09/09/21 09/12/21 History mg tablet (Percocet) sulfamethoxazole 800 1 tab PO BID 09/09/21 09/12/21 History mg-trimethoprim 160 mg tablet (Bactrim DS) ibuprofen 600 mg tablet 600 mg PO BID PRN 09/12/21 09/12/21 History levothyroxine 25 mcg tablet 25 mcg PO DAILYBB 09/12/21 09/12/21 History lorazepam 0.5 mg tablet 0.5 mg PO BID PRN 09/12/21 09/12/21 History metoprolol succinate 25 mg 25 mg PO DAILY 09/12/21 09/12/21 History tablet,extended release 24 hr (Toprol XL) ondansetron 8 mg disintegrating 8 mg PO Q8H PRN 09/12/21 09/12/21 History tablet prochlorperazine maleate 10 mg 10 mg PO Q8H PRN 09/12/21 09/12/21 History tablet sennosides 8.6 mg capsule (senna) 8.6 mg PO BID PRN 09/12/21 09/12/21 History simvastatin 20 mg tablet 20 mg PO DAILY 09/12/21 09/12/21 History venlafaxine 75 mg tablet 75 mg PO BID 09/12/21 09/12/21 History zolpidem 10 mg tablet 10 mg PO HS PRN 09/12/21 09/12/21 History Past Med/Surg History Medical History (Updated 09/12/21 @ 17:31 by Kenroy Owusu MD) Chest pain Elevated lipids Gastroenteritis High cholesterol Hypertension (06/17/13) Hypothyroidism Tennis elbow Vulvar cancer Surgical History (Updated 08/20/21 @ 08:34 by Tonya Rouse, [place]) H/O vulvectomy History of hip replacement left History of partial hysterectomy Hx of cholecystectomy Family History (Updated 08/20/21 @ 08:37 by Tonya Rouse, [place]) Grandfather (Maternal) Cancer skin cancer Mother Hypertension Dyslipidemia Thyroid disease Father Dyslipidemia Social History (Updated 08/20/21 @ 08:40 by Tonya Rouse RN) Smoking Status: Current every day smoker Tobacco Type: Cigarettes Age Started Using Tobacco: 16; packs per day: 0.5; Cigarettes Per Day: 10; Hx Alcohol Use: No Hx Substance Use: No Preferred Language: Spanish Communication Ability: Effective Hearing Ability: Normal 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 Physical Exam Physical Exam: GENERAL: Alert and oriented x3. NAD, on RA. morbid Obese. HEENT: No pallor, no icterus. Pupils equal, round and reactive to light. Oral mucosa moist. NECK: No JVD, no neck masses. Rt chest port w/o signs of infection. HEART: S1 and S2 heard. Regular rate and rhythm. No murmur, no gallop. RESPIRATORY SYSTEM: Normal AP diameter. No accessory muscle use. No wheezing, no crackles. ABDOMEN: Soft, bowel sounds present, nontender, no distention. CENTRAL NERVOUS SYSTEM: No facial droop. Speech is clear. Obeys simple commands. Moves extremities. EXTREMITIES: No edema, no erythema seen. exam: Rt vulvar cancer/lesion noted, no bleeding noted. Results & Data Results & Data ([facility]) Vital Signs (Past 12 Hours) Vital Signs Temp Pulse Pulse Resp BP BP Pulse Ox 09/12/21 17:11 91 H 18 158/109 H 94 09/12/21 16:46 89 18 185/100 H 95 09/12/21 15:46 87 18 196/113 H 97 09/12/21 15:00 78 18 172/101 H 96 09/12/21 13:54 88 87 20 180/103 H 94 09/12/21 12:51 36.5 C 90 18 143/93 H 96 Code Status & VTE Plan VTE Prophylaxis Plan VTE Prophylaxis will be ordered: Yes
[2021-09-12 17:34] LABS: Calcium Oxalate Crystals Urine Present (None Prsent); RBC Urine Automated 0-4 /hpf (0-4)
[2021-09-12] MEDS ORDERED: LORazepam 0.5 MG TAB PO PRN (19:10)
[2021-09-12] MEDS ORDERED: oxyCODONE/ACETAMINOPHEN 5mg/325mg TAB PO PRN (19:10)
[2021-09-12] MEDS ORDERED: ONDANSETRON 8MG OD TAB PO PRN (19:10)
[2021-09-12] MEDS: VENLAFAXINE HCL 37.5 MG TAB PO SCH (21:36)
[2021-09-12] MEDS: ACETAMINOPHEN 500 MG TAB PO PRN (21:39)
--- NOTE | 2021-09-12 21:57 | OB/GYN Consultation ---
Date of Consultation September 12, 2021 Assessment & Plan (1) Recurrent vulvar cancer: No active bleeding at this time, patient to resume radiation and chemotherapy soon as possible If she starts to have recurrence of heavy bleeding, would recommend possible transfer to higher level of care due to to the need of possible PERSONNEL OFFICER oncology Patient voiced her understanding and agreement with the plan. All questions answered in the room History of Present Illness Reason for Consultation: Bleeding Attending Physician: Kenroy Owusu MD History of Present Illness Patient is a 50-year-old G0, P0 with a known history of vulvar cancer diagnosed in 2010. He is currently admitted by hospitalist staff, but was noted to have possible vaginal bleeding. She is currently undergoing radiation therapy and chemotherapy for recurrence of vulvar cancer. She last received radiation yesterday, and chemotherapy on Wednesday. Patient has had intermittent spotting at times, and had a little bit heavier bleeding earlier today. Notes the area to be painful. Has been able to urinate, but it is painful at times, normal bowel movements. Did feel off but denies any fevers or chills. Patient has a history of vulvar cancer that was diagnosed in 2010, after vulvar biopsy was taken after failed antibiotic treatment. 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) No other complaints at this time Allergies Allergy/AdvReac Type Severity Reaction Status Date / Time amoxicillin Allergy Unknown YEAST Verified 08/20/21 08:27 INFECTIONS clavulanic acid Allergy Unknown YEAST Verified 08/20/21 08:27 INFECTIONS oxycodone Allergy Unknown ANAPHYLAXIS Verified 08/20/21 08:27 Home Medications Medication Instructions Recorded Confirmed Type acetaminophen 500 mg tablet 1,000 mg PO TID PRN tab 08/20/21 09/12/21 History (Tylenol Extra Strength) amitriptyline 25 mg tablet 50 mg PO DAILY 08/20/21 09/12/21 History omeprazole 40 mg capsule,delayed 40 mg PO DAILY 08/20/21 09/12/21 History release lidocaine 5 % topical ointment 1 applic TOPICAL QID PRN #60 g 08/28/21 09/12/21 Rx oxycodone-acetaminophen 5 mg-325 1 tab PO Q8H PRN 09/09/21 09/12/21 History mg tablet (Percocet) sulfamethoxazole 800 1 tab PO BID 09/09/21 09/12/21 History mg-trimethoprim 160 mg tablet (Bactrim DS) ibuprofen 600 mg tablet 600 mg PO BID PRN 09/12/21 09/12/21 History levothyroxine 25 mcg tablet 25 mcg PO DAILYBB 09/12/21 09/12/21 History lorazepam 0.5 mg tablet 0.5 mg PO BID PRN 09/12/21 09/12/21 History metoprolol succinate 25 mg 25 mg PO DAILY 09/12/21 09/12/21 History tablet,extended release 24 hr (Toprol XL) ondansetron 8 mg disintegrating 8 mg PO Q8H PRN 09/12/21 09/12/21 History tablet prochlorperazine maleate 10 mg 10 mg PO Q8H PRN 09/12/21 09/12/21 History tablet sennosides 8.6 mg capsule (senna) 8.6 mg PO BID PRN 09/12/21 09/12/21 History simvastatin 20 mg tablet 20 mg PO DAILY 09/12/21 09/12/21 History venlafaxine 75 mg tablet 75 mg PO BID 09/12/21 09/12/21 History zolpidem 10 mg tablet 10 mg PO HS PRN 09/12/21 09/12/21 History Patient History Medical History (Updated 09/12/21 @ 17:31 by Kenroy Owusu MD) Chest pain Elevated lipids Gastroenteritis High cholesterol Hypertension (06/17/13) Hypothyroidism Tennis elbow Vulvar cancer Surgical History (Updated 08/20/21 @ 08:34 by Tonya Rouse RN) H/O vulvectomy History of hip replacement left History of partial hysterectomy Hx of cholecystectomy Family History (Updated 08/20/21 @ 08:37 by Tonya Rouse RN) Grandfather (Maternal) Cancer skin cancer Mother Hypertension Dyslipidemia Thyroid disease Father Dyslipidemia Social History (Updated 08/20/21 @ 08:40 by Tonya Rouse RN) Smoking Status: Current every day smoker Tobacco Type: Cigarettes Age Started Using Tobacco: 16; packs per day: 0.5; Cigarettes Per Day: 10; Hx Alcohol Use: No Hx Substance Use: No Preferred Language: Frisian Communication Ability: Effective Hearing Ability: Normal 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 Beliefs That Will Affect Care: None marital status: Current Living Situation: Alone current occupational status: employed 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 Feels Safe at Home: Yes caffeine: Yes Assistive Devices: CPAP Review of Systems Review of Systems: All systems reviewed & are unremarkable except as noted in HPI & below Physical Exam Constitutional: WD/WN, vitals as above Respiratory: normal respiratory effort, lungs clear to auscultation Cardiovascular: RRR, no murmur, no edema Gastrointestinal (Abdomen): normal bowel sounds, soft, nontender, no hepatosplenomegaly obese Genitourinary: External genitalia: No active bleeding noted from the right labia, right labia shows recurrent vulvar lesions that are consistent with squamous cell carcinoma of the vulva, firm, patient unable to tolerate remainder of exam due to pain Unable to perform speculum exam due to pain Bimanual exam could not be performed as patient could not tolerate further exam due to pain Female edi architect present for the entire exam Results & Data ([facility]) Vital Signs (Past 12 Hours) Vital Signs Temp Pulse Pulse Resp BP BP Pulse Ox 09/12/21 19:31 91 H 18 152/83 H 92 09/12/21 19:02 36.9 C 92 H 18 145/91 H 94 09/12/21 18:00 80 18 170/99 H 98 09/12/21 17:11 91 H 18 158/109 H 94 09/12/21 16:46 89 18 185/100 H 95 09/12/21 15:46 87 18 196/113 H 97 09/12/21 15:00 78 18 172/101 H 96 09/12/21 13:54 88 87 20 180/103 H 94 09/12/21 12:51 36.5 C 90 18 143/93 H 96
--- NOTE | 2021-09-12 23:40 | Electrocardiogram Report ---
Test Reason : Blood Pressure : / mmHG Vent. Rate : 082 BPM Atrial Rate : 082 BPM P-R Int : 132 ms QRS Dur : 082 ms QT Int : 374 ms P-R-T Axes : 059 009 044 degrees QTc Int : 436 ms Normal sinus rhythm Normal ECG When compared with ECG of 22-MAR-2016 07:51, No significant change was found Confirmed by Tom Red ([id number]) on 09/12/2021 11:40:17 PM Referred By: REFERRED SELF Confirmed By:Tom Red
[2021-09-13] MEDS ORDERED: KETOROLAC TROMETHAMINE 15 MG/ML VIAL IV ONE ×2 (01:51→11:07)
[2021-09-13] MEDS: oxyCODONE HCL IR 5 MG TAB (IMMEDIATE RELEASE) PO PRN (06:39)
[2021-09-13] MEDS: LEVOTHYROXINE SODIUM 25 MCG TABLET PO SCH (06:40)
[2021-09-13 07:11] LABS: Hemoglobin 12.2 g/dl (12.0-16.0); Mean Corpuscular Hemoglobin 32.3 pg (25.0-34.0); Mean Corpuscular Volume 97.9 fL (80.0-100.0); Mean Platelet Volume 9.6 fL (9.4-12.3); Platelet Count 254 K/uL (130-400); RDW Coefficient of Variation 12.6 % (11.5-14.5); RDW Standard Deviation 45.1 fL (36.4-46.3); Red Blood Count 3.78 M/uL (3.93-5.22); White Blood Count 6.15 K/ul (4.8-10.8)
[2021-09-13 07:46] LABS: Albumin Level 4.1 gm/dl (3.4-5.0); BUN Creatinine Ratio 21.8 (10-20); Bilirubin Direct 0.3 mg/dl (0-0.2); Calcium 8.7 mg/dl (8.5-10.1); Creatinine Clr Calc Pharmacy 103.7 ml/min; Est GFR (Non-African American) 77.7 ml/min; Magnesium 1.7 mg/dl (1.7-2.4); Potassium 3.8 mmol/L (3.5-5.1); Total Protein 6.7 gm/dl (6.0-8.3)
[2021-09-13] MEDS: PANTOprazole 40 MG TAB PO SCH (08:59)
[2021-09-13] MEDS: METOPROLOL SUCC 25MG EXT REL TAB PO SCH (09:00)
[2021-09-13] MEDS: AMITRIPTYLINE HCL 50 MG TAB PO SCH (09:00)
[2021-09-13] MEDS: VENLAFAXINE HCL 37.5 MG TAB PO SCH ×2 (09:00→20:42)
[2021-09-13] MEDS: SIMVASTATIN 20 MG TAB PO SCH (09:00)
[2021-09-13] MEDS: ACETAMINOPHEN 500 MG TAB PO PRN (11:01)
[2021-09-13] MEDS: SENNA 8.6 MG TAB PO PRN (13:38)
--- NOTE | 2021-09-13 15:50 | Hospitalist Progress Note ---
Date of Service September 13, 2021 Assessment & Plan (1) Illness: Plan: Generalized weakness likely multifocal Status post chemo and radiation for vulvar cancer May have UTI as mentioned below Plan: #. Likely UTI #. Vulvar SCC undergoing chemo and radiation Patient noted to have bleeding from her genitourinary region on the day of admission at radiation office which was more heavy than her intermittent/slight bleeding. Patient also complains of having pain or burning with passing urine since July, patient currently on Bactrim since last 1 week, yet to finish her course. Patient was given Bactrim for broader spectrum coverage and foci of infection was not identified per patient. Patient received Rocephin while in ED, labs look fairly WNL, blood culture and urine culture, continue Rocephin, urine analysis negative for UTI. Urine culture is growing pinpoint growth-we will continue current antibiotic for now Still has urinary symptoms and more pain following micturition Denies any fever and or chills #. 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 Other chronic medical conditions: Esophageal reflux, hypothyroidism Continue with/resume home meds as and when appropriate. #. DVT prophylaxis: SCDs re: bleeding, if no bleeding by deneen am, consider chemo Px. #. DNR/DNI Admission and Anticipated Discharge Date Admission Date: September 12, 2021 Subjective 09/13/2021 The patient was seen and examined in medical telemetry unit She has been complaining of pain in during and after passing urine She does not have any more bleeding Her pain in is not well controlled Review of Systems Review of Systems: All systems reviewed and are unremarkable except as noted below Genitourinary: Vulvar pain and pain with micturition Physical Exam Physical Exam: Lying in bed without any acute distress Constitutional: well developed, well nourished, + ill appearing and + obese Eyes: PERRL, conjunctivae normal, anicteric sclerae ENMT: external ear and nose normal, oropharynx normal Neck: trachea midline, no thyromegaly Respiratory: no respiratory distress Auscultation: lungs clear to auscultation bilaterally Cardiovascular: Rate/Rhythm: regular rate and regular rhythm; not tachycardic Heart Sounds: normal S1 and normal S2; no murmur Extremities: + edema (Trace edema bilaterally) Gastrointestinal (Abdomen): Inspection/Auscultation: normal bowel sounds; abdomen not distended Percussion/Palpation: abdomen soft; abdomen nontender Musculoskeletal: No acute arthritis in any joint Neurologic: Alert, awake and oriented x3. No focal sensory or no motor deficit appreciated Psychiatric: A+Ox3, euthymic affect Lymphatic: no cervical or axillary lymphadenopathy Results & Data Results & Data ([facility]) Vital Signs (Past 12 Hours) Vital Signs Temp Pulse Pulse Resp BP Pulse Ox 09/13/21 15:10 66 09/13/21 11:33 36.4 C L 64 18 170/92 H 94 09/13/21 07:26 72 09/13/21 07:23 36.6 C 69 18 142/90 H 95 Laboratory Results Short CBC 09/13/21 Range/Units 06:42 WBC 6.15 (4.8-10.8) K/ul Hgb 12.2 (12.0-16.0) g/dl Hct 37.0 (34.1-44.9) % Plt Count 254 (130-400) K/uL BMP 09/13/21 06:42 Sodium 135 L Potassium 3.8 Chloride 101 Carbon Dioxide 27 BUN 19 Creatinine 0.87 Glucose 103 H Calcium 8.7 Liver Function 09/13/21 Range/Units 06:42 Total Bilirubin 1.0 D (0.2-1.0) mg/dl Direct Bilirubin 0.3 H (0-0.2) mg/dl AST 717 H (13-39) U/L ALT 722 H (7-52) U/L Alkaline Phosphatase 115 H (34-104) U/L Albumin 4.1 (3.4-5.0) gm/dl Urine 09/12/21 Range/Units 15:36 Urine Color Yellow Urine Appearance Clear (Clear) Urine pH 6.0 (4.5-7.5) Ur Specific [place] 1.016 (1.000-1.030) Urine Protein Negative (Negative) Urine Glucose (UA) Negative (Negative) Medications Administered Current Inpatient Medications Acetaminophen (Acetaminophen 500 Mg Tab) 1,000 mg PO TID PRN PRN Reason: Pain Stop: 10/12/21 19:09 Last Admin: 09/13/21 11:01 Dose: 1,000 mg Documented by: Amitriptyline HCl (Amitriptyline Hcl 50 Mg Tab) 50 mg PO DAILY [facility] Stop: 10/13/21 08:59 Last Admin: 09/13/21 09:00 Dose: Not Given Documented by: Ceftriaxone Sodium 2,000 mg/ (Dextrose) 70 mls @ 100 mls/hr IV Q24H [facility]; Helene col Stop: 09/23/21 15:59 Levothyroxine Sodium (Levothyroxine Sodium 25 Mcg Tablet) [facility] Stop: 10/13/21 06:29 Last Admin: 09/13/21 06:40 Dose: 25 mcg Documented by: Lorazepam (Lorazepam 0.5 Mg Tab) 0.5 mg PO BID PRN PRN Reason: Anxiety Stop: 10/12/21 19:09 Metoprolol Succinate (Metoprolol Succ 25mg Ext Rel Tab) 25 mg PO DAILY [facility] Stop: 10/13/21 08:59 Last Admin: 09/13/21 09:00 Dose: 25 mg Documented by: Ondansetron HCl (Ondansetron 8mg Od Tab) 8 mg PO Q8H PRN PRN Reason: Nausea Stop: 10/12/21 19:09 Oxycodone HCl (Oxycodone Hcl Ir 5 Mg Tab (Immediate Release)) 5 - 10 mg PO QID PRN PRN Reason: Pain Stop: 09/27/21 01:51 Last Admin: 09/13/21 06:39 Dose: 10 mg Documented by: Pantoprazole Sodium (Pantoprazole 40 Mg Tab) 40 mg PO DAILY [facility]; Protocol Stop: 10/13/21 08:59 Last Admin: 09/13/21 08:59 Dose: 40 mg Documented by: Sennosides (Senna 8.6 Mg Tab) 8.6 mg PO BID PRN PRN Reason: Constipation Stop: 10/12/21 20:25 Last Admin: 09/13/21 13:38 Dose: 8.6 mg Documented by: Simvastatin (Simvastatin 20 Mg Tab) 20 mg PO DAILY [facility] Stop: 10/13/21 08:59 Last Admin: 09/13/21 09:00 Dose: 20 mg Documented by: Venlafaxine HCl (Venlafaxine Hcl 37.5 Mg Tab) 75 mg PO BID [facility] Stop: 10/12/21 20:59 Last Admin: 09/13/21 09:00 Dose: 75 mg Documented by: Zolpidem Tartrate (Zolpidem Tartrate 10 Mg Tab) 10 mg PO HS PRN PRN Reason: Insomnia Stop: 10/12/21 19:09
[2021-09-13] MEDS ORDERED: cefTRIAXone SODIUM 2,000 MG in DEXTROSE 5% 50 ML IV SCH (16:00)
[2021-09-13] MEDS ORDERED: PROMETHAZINE HCL 12.5 MG in SODIUM CHLORIDE 0.9% 50 ML IV PRN (23:27)
[2021-09-13] MEDS ORDERED: METOPROLOL TARTRATE 1 MG/ML VIAL IV STA (23:32)
[2021-09-14] MEDS: ZOLPIDEM TARTRATE 10 MG TAB PO PRN ×2 (00:29→00:30)
[2021-09-14] MEDS: oxyCODONE HCL IR 5 MG TAB (IMMEDIATE RELEASE) PO PRN (02:08)
[2021-09-14] MEDS: SENNA 8.6 MG TAB PO PRN (02:32)
[2021-09-14] MEDS: LEVOTHYROXINE SODIUM 25 MCG TABLET PO SCH (05:49)
[2021-09-14 06:55] LABS: BUN Creatinine Ratio 21.1 (10-20); Calcium 9.1 mg/dl (8.5-10.1); Creatinine Clr Calc Pharmacy 127.1 ml/min; Est GFR (African American) 115.1 ml/min; Est GFR (Non-African American) 99.3 ml/min; Potassium 3.8 mmol/L (3.5-5.1)
[2021-09-14 07:13] LABS: Basophils # (auto) 0.01 K/uL (0-0.2); Basophils % (auto) 0.1 %; Eosinophils # (auto) 0.09 K/uL (0-0.50); Eosinophils % (auto) 1.2 %; Hematocrit (blood only) 39.1 % (34.1-44.9); Hemoglobin 12.9 g/dl (12.0-16.0); Immature Granulocytes # (auto) 0.06 K/uL (0.00-0.02); Immature Granulocytes % (auto) 0.8 %; Lymphocytes # (auto) 1.81 K/uL (1.2-3.4); Lymphocytes % (auto) 24.1 %; Mean Corpuscular Hemoglobin 31.7 pg (25.0-34.0); Mean Corpuscular Volume 96.1 fL (80.0-100.0); Monocytes # (auto) 0.48 K/uL (0.24-0.82); Monocytes % (auto) 6.4 %; Neutrophils # (auto) 5.06 K/uL (1.4-6.5); Neutrophils % (auto) 67.4 %; Platelet Count 299 K/uL (130-400); RDW Coefficient of Variation 12.1 % (11.5-14.5); RDW Standard Deviation 42.7 fL (36.4-46.3); Red Blood Count 4.07 M/uL (3.93-5.22); White Blood Count 7.51 K/ul (4.8-10.8)
[2021-09-14] MEDS: PANTOprazole 40 MG TAB PO SCH (08:39)
[2021-09-14] MEDS: ACETAMINOPHEN 500 MG TAB PO PRN (08:39)
[2021-09-14] MEDS: SIMVASTATIN 20 MG TAB PO SCH (08:40)
[2021-09-14] MEDS: VENLAFAXINE HCL 37.5 MG TAB PO SCH (08:40)
[2021-09-14] MEDS: AMITRIPTYLINE HCL 50 MG TAB PO SCH ×2 (08:40→11:49)
[2021-09-14] MEDS: METOPROLOL SUCC 25MG EXT REL TAB PO SCH (08:40)
[2021-09-14 11:37] VITALS: TEMP 97.9; O2SAT 96
[2021-09-14] MEDS ORDERED: METOPROLOL SUCC 25MG EXT REL TAB PO ONE (11:42)
[2021-09-14] MEDS ORDERED: oxyCODONE HCL IR 5 MG TAB (IMMEDIATE RELEASE) PO PRN (11:42)
--- NOTE | 2021-09-14 13:06 | Hospitalist Progress Note ---
Date of Service September 14, 2021 Assessment & Plan (1) Illness: Plan: Generalized weakness likely multifocal Status post chemo and radiation for vulvar cancer May have UTI as mentioned below Urine culture showed contaminated species Plan: #. Likely UTI #. Vulvar SCC undergoing chemo and radiation Patient noted to have bleeding from her genitourinary region on the day of admission at radiation office which was more heavy than her intermittent/slight bleeding. Patient also complains of having pain or burning with passing urine since July, patient currently on Bactrim since last 1 week, yet to finish her course. Patient was given Bactrim for broader spectrum coverage and foci of infection was not identified per patient. Patient received Rocephin while in ED, labs look fairly WNL, blood culture and urine culture, continue Rocephin, urine analysis negative for UTI. Urine culture is growing pinpoint growth-we will continue current antibiotic for now Still has urinary symptoms and more pain following micturition Denies any fever and or chills Urine culture grew Corynebacterium species and Gardnerella like bacilli Does not need to be treated We will discontinue antibiotic #. Genitourinary bleeding Secondary to vulvar cancer and is status post chemo and radiation Patient came in with complaint of more heavy bleeding today than her usual light/intermittent bleeding Gynecology consult-appreciate input and recommendation No more bleeding and hemoglobin remains stable Chronic pain secondary to vulvar neoplasm Has been getting oxycodone and will need to adjust pain medications to control pain No more bleeding and hemoglobin remained stable Has been requiring higher doses of oxycodone to control pain #. Other chronic medical conditions: Esophageal reflux, hypothyroidism Continue with/resume home meds as and when appropriate. #. DVT prophylaxis: SCDs re: bleeding, if no bleeding by deneen am, consider chemo Px. #. DNR/DNI Should be discharged home this afternoon Admission and Anticipated Discharge Date Admission Date: September 12, 2021 Subjective 09/13/2021 The patient was seen and examined in medical telemetry unit She has been complaining of pain in during and after passing urine She does not have any more bleeding Her pain in is not well controlled 09/14/2021 The patient was seen and examined in medical telemetry unit She complains to have pain in the vulvar area with pain during voiding She denies any other symptoms Review of Systems Review of Systems: All systems reviewed and are unremarkable except as noted below Genitourinary: Vulvar pain and pain with micturition Physical Exam Physical Exam: Sitting at the edge of the bed without any acute distress Constitutional: well developed, well nourished, + ill appearing and + obese Eyes: PERRL, conjunctivae normal, anicteric sclerae ENMT: external ear and nose normal, oropharynx normal Neck: trachea midline, no thyromegaly Respiratory: no respiratory distress Auscultation: lungs clear to auscultation bilaterally Cardiovascular: Rate/Rhythm: regular rate and regular rhythm; not tachycardic Heart Sounds: normal S1 and normal S2; no murmur Extremities: + edema (Trace edema bilaterally) Gastrointestinal (Abdomen): Inspection/Auscultation: normal bowel sounds; abdomen not distended Percussion/Palpation: abdomen soft; abdomen nontender Musculoskeletal: No acute arthritis in any joint Neurologic: Alert, awake and oriented x3. No focal sensory or no motor de ficit appreciated Psychiatric: A+Ox3, euthymic affect Lymphatic: no cervical or axillary lymphadenopathy Results & Data Results & Data ([facility]) Vital Signs (Past 12 Hours) Vital Signs Temp Pulse Pulse Resp BP Pulse Ox 09/14/21 12:14 96 H 148/98 H 09/14/21 11:36 36.6 C 92 H 18 96 09/14/21 08:36 37.0 C 98 H 16 174/96 H 98 09/14/21 08:00 80 09/14/21 02:40 77 09/14/21 02:32 36.5 C 81 20 157/89 H 92 Laboratory Results Short CBC 09/14/21 Range/Units 05:42 WBC 7.51 (4.8-10.8) K/ul Hgb 12.9 (12.0-16.0) g/dl Hct 39.1 (34.1-44.9) % Plt Count 299 (130-400) K/uL BMP 09/14/21 05:42 Sodium 134 L Potassium 3.8 Chloride 98 Carbon Dioxide 29 BUN 15 Creatinine 0.71 Glucose 114 H Calcium 9.1 Medications Administered Current Inpatient Medications Acetaminophen (Acetaminophen 500 Mg Tab) 1,000 mg PO TID PRN PRN Reason: Pain Stop: 10/12/21 19:09 Last Admin: 09/14/21 08:39 Dose: 1,000 mg Documented by: Amitriptyline HCl (Amitriptyline Hcl 50 Mg Tab) 50 mg PO DAILY PENDING SALE TO [facility] Stop: 10/13/21 08:59 Last Admin: 09/14/21 11:49 Dose: 50 mg Documented by: Ceftriaxone Sodium 2,000 mg/ (Dextrose) 70 mls @ 100 mls/hr IV Q24H PENDING SALE TO [facility]; Protocol Stop: 09/23/21 15:59 Last Infusion: 09/13/21 16:58 Dose: Infused Documented by: Promethazine HCl 12.5 mg/ (Sodium Chloride) 50.5 mls @ 202 mls/hr IV Q6H PRN PRN Reason: Nausea And Vomiting Stop: 10/13/21 23:26 Last Infusion: 09/14/21 00:30 Dose: Infused Documented by: Levothyroxine Sodium (Levothyroxine Sodium 25 Mcg Tablet) 25 mcg PO DAILYBB PENDING SALE TO [facility] Stop: 10/13/21 06:29 Last Admin: 09/14/21 05:49 Dose: 25 mcg Documented by: Lorazepam (Lorazepam 0.5 Mg Tab) 0.5 mg PO BID PRN PRN Reason: Anxiety Stop: 10/12/21 19:09 Metoprolol Succinate (Metoprolol Succ 50mg Ext Rel Tab) 50 mg PO DAILY PENDING SALE TO [facility] Stop: 10/15/21 08:59 Ondansetron HCl (Ondansetron 8mg Od Tab) 8 mg PO Q8H PRN PRN Reason: Nausea Stop: 10/12/21 19:09 Last Admin: 09/13/21 20:42 Dose: 8 mg Documented by: Oxycodone HCl (Oxycodone Hcl Ir 5 Mg Tab (Immediate Release)) 10 mg PO QID PRN PRN Reason: Pain not relieved by Tylenol Stop: 09/27/21 01:51 Last Admin: 09/14/21 12:17 Dose: 10 mg Documented by: Pantoprazole Sodium (Pantoprazole 40 Mg Tab) 40 mg PO DAILY PENDING SALE TO [facility]; Protocol Stop: 10/13/21 08:59 Last Admin: 09/14/21 08:39 Dose: 40 mg Documented by: Sennosides (Senna 8.6 Mg Tab) 8.6 mg PO BID PRN PRN Reason: Constipation Stop: 10/12/21 20:25 Last Admin: 09/14/21 02:32 Dose: 8.6 mg Documented by: Simvastatin (Simvastatin 20 Mg Tab) 20 mg PO DAILY [facility] Stop: 10/13/21 08:59 Last Admin: 09/14/21 08:40 Dose: 20 mg Documented by: Venlafaxine HCl (Venlafaxine Hcl 37.5 Mg Tab) 75 mg PO BID [facility] Stop: 10/12/21 20:59 Last Admin: 09/14/21 08:40 Dose: 75 mg Documented by: Zolpidem Tartrate (Zolpidem Tartrate 10 Mg Tab) 10 mg PO HS PRN PRN Reason: Insomnia Stop: 10/12/21 19:09 Last Admin: 09/14/21 00:30 Dose: 10 mg Documented by:
[2021-09-14 14:52] VITALS: BP 164/98; PULSE 91
--- NOTE | 2021-09-14 16:09 | Discharge Summary ---
Date of Service September 14, 2021 Admission HPI Per Admitting Provider 50-year-old lady with recent diagnosis of SCC x vulva undergoing 6-week treatment with chemo and radiation with Dr. Dandre Mccall, esophageal reflux, diaphragmatic hernia, allergic rhinitis, lichen sclerosis presented to our ED 09/12 from radiation clinic due to concerns of bleeding associated with shaking chills at the radiation office. Patient reports feeling chills/cold since last 1 day, patient is taking Bactrim for infection [not sure the site of infection] last 1 week, she reports having light intermittent bleeding from the genitourinary area but the bleeding today was heavy and dripping down both lower extremities. Hence she was sent over to ER for further evaluation. Bleeding seems to have self controlled at bedside exam. Patient does report feeling pain or burning while passing urine since July. Patient denies fever or headache or chest pain or palpitation or sore throat or cough or belly pain or changes in her bowel habit lately. Patient does report some dizziness and weakness. Patient has received COVID-vaccine x2. Patient endorses a smoking 2 to 3 packs/week, lately 2 packs/week, smoking since age 25. Patient endorses drinking alcohol very rarely. Patient denies any recreational drugs or marijuana use. Patient DNR/DNI. Patient reports skin cancer in grandparents and " some cancer" in her uncle. Patient denies blood clot history in self. Admission Exam Per Admitting Provider Physical Exam: GENERAL: Alert and oriented x3. NAD, on RA. morbid Obese. HEENT: No pallor, no icterus. Pupils equal, round and reactive to light. Oral mucosa moist. NECK: No JVD, no neck masses. Rt chest port w/o signs of infection. HEART: S1 and S2 heard. Regular rate and rhythm. No murmur, no gallop. RESPIRATORY SYSTEM: Normal AP diameter. No accessory muscle use. No wheezing, no crackles. ABDOMEN: Soft, bowel sounds present, nontender, no distention. CENTRAL NERVOUS SYSTEM: No facial droop. Speech is clear. Obeys simple commands. Moves extremities. EXTREMITIES: No edema, no erythema seen. exam: Rt vulvar cancer/lesion noted, no bleeding noted. 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, cancer related pain, genitourinary bleeding-stopped, hypertension Discharge Exam Sitting at the edge of the bed without any acute distress Constitutional well developed, well nourished, + ill appearing and + obese Eyes PERRL, conjunctivae normal, anicteric sclerae ENMT external ear and nose normal, oropharynx normal Neck trachea midline, no thyromegaly Respiratory no respiratory distress Auscultation: lungs clear to auscultation bilaterally Cardiovascular Rate/Rhythm: regular rate and regular rhythm; not tachycardic Heart Sounds: normal S1 and normal S2; no murmur Extremities: + edema (Trace edema bilaterally) Gastrointestinal (Abdomen) Inspection/Auscultation: normal bowel sounds; abdomen not distended Percussion/Palpation: abdomen soft; abdomen nontender Psychiatric A+Ox3, euthymic affect Lymphatic no cervical or axillary lymphadenopathy Discharge Data Allergies Allergy/AdvReac Type Severity Reaction Status Date / Time amoxicillin Allergy Unknown YEAST Verified 08/20/21 08:27 INFECTIONS clavulanic acid Allergy Unknown YEAST Verified 08/20/21 08:27 INFECTIONS oxycodone Allergy Unknown ANAPHYLAXIS Verified 08/20/21 08:27 Consultations 09/12/21 16:45 ED Decision to Admit Stat 09/12/21 17:28 Consult Gynecology Routine Ordered Studies 09/12/21 13:17 CT abd pelvis IV con only Stat Hospital Course (1) Illness: Generalized weakness likely multifocal Status post chemo and radiation for vulvar cancer May have UTI as mentioned below Urine culture showed contaminated species #. Likely UTI #. Vulvar SCC undergoing chemo and radiation Patient noted to have bleeding from her genitourinary region on the day of admission at radiation office which was more heavy than her intermittent/slight bleeding. Patient also complains of having pain or burning with passing urine since July, patient currently on Bactrim since last 1 week, yet to finish her course. Patient was given Bactrim for broader spectrum coverage and foci of infection was not identified per patient. Patient received Rocephin while in ED, labs look fairly WNL, blood culture and urine culture, continue Rocephin, urine analysis negative for UTI. Urine culture is growing pinpoint growth-we will continue current antibiotic for now Still has urinary symptoms and more pain following micturition Denies any fever and or chills Urine culture grew Corynebacterium species and Gardnerella like bacilli Does not need to be treated We will discontinue antibiotic #. Genitourinary bleeding Secondary to vulvar cancer and is status post chemo and radiation Patient came in with complaint of more heavy bleeding today than her usual light/intermittent bleeding Gynecology consult-appreciate input and recommendation No more bleeding and hemoglobin remains stable Chronic pain secondary to vulvar neoplasm Has been getting oxycodone and will need to adjust pain medications to control pain No more bleeding and hemoglobin remained stable Has been requiring higher doses of oxycodone to control pain #. Other chronic medical conditions: Esophageal reflux, hypothyroidism Continue with/resume home meds as and when appropriate. #. DVT prophylaxis: SCDs re: bleeding, if no bleeding by deneen am, consider chemo Px. #. 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, cancer related pain, genitourinary bleeding-stopped, hypertension Condition on Discharge: Fair Activity: Resume your previous activity Non-emergency contact: Primary Care Provider Call non-emergency contact if: you have any medication questions and your symptoms worsen Follow-up/Referrals: Cierra Quintanilla MD [Primary Care Provider] - (Please make an appointment with your family doctor within 7 days following discharge) Diet: Regular Addtl Attending Provider Instructions: Please take precautions to avoid falls Try to use ibuprofen and/or Tylenol for pain control Use narcotic pain medications cautiously to avoid constipation, confusion and addiction Please keep appointment with your healthcare providers Pending Studies at Discharge: No Stand-Alone Forms: My [employer], Smoking Cessation Medications and DC Order Prescriptions: New metoprolol succinate 50 mg Tablet Extended Release 24 Hr 50 mg PO DAILY Qty: 30 RF: 0 Continued acetaminophen [Tylenol Extra Strength] 500 mg tablet 1,000 mg PO TID PRN (Reason: Pain) RF: 0 omeprazole 40 mg capsule,delayed release(DR/EC) 40 mg PO DAILY RF: 0 amitriptyline 25 mg tablet 50 mg PO DAILY RF: 0 lidocaine 5 % ointment 1 applic topical QID PRN (Reason: pain) Qty: 60 RF: 3 levothyroxine 25 mcg Tablet 25 mcg PO DAILYBB RF: 0 lorazepam 0.5 mg Tablet 0.5 mg PO BID PRN (Reason: Anxiety) RF: 0 simvastatin 20 mg Tablet 20 mg PO DAILY RF: 0 zolpidem 10 mg Tablet 10 mg PO HS PRN (Reason: Insomnia) RF: 0 venlafaxine 75 mg Tablet 75 mg PO BID RF: 0 ibuprofen 600 mg Tablet 600 mg PO BID PRN (Reason: Pain) RF: 0 ondansetron 8 mg Tablet,Disintegrating 8 mg PO Q8H PRN (Reason: Nausea) RF: 0 prochlorperazine maleate 10 mg Tablet 10 mg PO Q8H PRN (Reason: Nausea And Vomiting) RF: 0 senna 8.6 mg Capsule 8.6 mg PO BID PRN (Reason: Constipation) RF: 0 oxycodone-acetaminophen [Percocet] 5-325 mg tablet 1 tab PO Q8H PRN (Reason: pain) Qty: 20 RF: 0 Discontinued sulfamethoxazole-trimethoprim [Bactrim DS] 800-160 mg tablet 1 tab PO BID RF: 0 metoprolol succinate [Toprol XL] 25 mg Tablet Extended Release 24 Hr 25 mg PO DAILY RF: 0 Discharge Orders: Discharge Order (Routine); Ordered 09/14/21 Ordered By: Toro Luz Admission Data Admit Date/Time: 09/12/21 17:11 Attending Provider: Toro Luz Admit Provider: Kenroy Owusu Primary Care Provider: Cierra Quintanilla Other Providers: Kenroy Owusu ; Mima Raymond Other Interventions: Discharge Summary Assessment (RN) Last Done: 09/14/21 14:50
[2021-09-15] MEDS ORDERED: METOPROLOL SUCC 50MG EXT REL TAB PO SCH (09:00)
== END 2021-09-14 16:30 | disposition home or self-care (01) | DRG 755 ==
LOC: ED 12:50 → SUATTDRO 17:11 → 2W 17:11